=== PATIENT | female | born 1985 | race Caucasian/White ===

== ENCOUNTER 2018-07-25 08:26 | Emergency (ER) | payer BC, MEDICAID ==
[~2018-07-25] VITALS: Ht 167.6 cm; Wt 86.4 kg
[2018-07-25 08:32] VITALS: BP 115/71
== END 2018-07-25 09:03 | disposition home or self-care (01) ==
LOC: ER 08:27
DX: R22.9 Localized swelling, mass and lump, unspecified (principal); F17.200 Nicotine dependence, unspecified, uncomplicated; Z88.1 Allergy status to other antibiotic agents; Z88.6 Allergy status to analgesic agent
CPT/HCPCS: 99281

== ENCOUNTER 2018-08-02 08:58 | Emergency (ER) | payer MEDICAID ==
[~2018-08-02] VITALS: Ht 167.6 cm; Wt 91.7 kg
[2018-08-02 09:00] VITALS: BP 134/79
[2018-08-02] MEDS ORDERED: TETanus/Pertussis (Acell)/Diphther VAC/PF (Tdap-Adult) 0.5ml syringe IM ONE (09:10)
[2018-08-02] MEDS ORDERED: LIDOcaine 1.5% w/epinephrine 1:200,000 5ml ampul IJ ONE (09:10)
[2018-08-02] MEDS ORDERED: ibuprofen tablet 400 MG TABLET PO ONE (09:10)
[2018-08-02] MEDS ORDERED: bacitracin 15gm ointment TP ONE (09:10)
[2018-08-02] MEDS ORDERED: LIDOcaine 1% w/epiNEPHrine 1:200,000 30ml vial IJ ONE (09:20)
== END 2018-08-02 10:03 | disposition home or self-care (01) ==
LOC: ER 08:59
DX: L02.212 Cutaneous abscess of back [any part, except buttock and flank] (principal); L72.0 Epidermal cyst; Z86.19 Personal history of other infectious and parasitic diseases; Z56.0 Unemployment, unspecified; Z88.8 Allergy status to other drugs, medicaments and biological substances
CPT/HCPCS: 10060; 90471; 90715; 99283; J3490

== ENCOUNTER 2018-08-04 08:19 | Emergency (ER) | payer MEDICAID ==
[~2018-08-04] VITALS: Ht 167.6 cm; Wt 84.1 kg
[2018-08-04 08:20] VITALS: BP 125/81
[2018-08-04] MEDS ORDERED: IBUP-1984 PO (09:28)
== END 2018-08-04 09:47 | disposition home or self-care (01) ==
LOC: ER 08:20
DX: S02.5XXA Fracture of tooth (traumatic), initial encounter for closed fracture (principal); L02.212 Cutaneous abscess of back [any part, except buttock and flank]; Z88.6 Allergy status to analgesic agent; Z88.8 Allergy status to other drugs, medicaments and biological substances; Z79.899 Other long term (current) drug therapy; Z56.0 Unemployment, unspecified; X58.XXXA Exposure to other specified factors, initial encounter; Y93.89 Activity, other specified; Y92.89 Other specified places as the place of occurrence of the external cause; Y99.8 Other external cause status
CPT/HCPCS: 99282